=== PATIENT | female | born 1960 ===

== ENCOUNTER 2017-04-30 08:31 | Inpatient (IN) | payer BC ==
[2017-04-30] MEDS ORDERED: Midazolam 2 MG/2 ML VIAL ONE (09:26)
[2017-04-30] MEDS ORDERED: Propofol 10 mg/ml Inj (20 ML) ONE (09:26)
[2017-04-30] MEDS ORDERED: Rocuronium 10 mg/ml (5 ml) ONE ×3 (09:47→12:15)
[2017-04-30] MEDS ORDERED: Methylene Blue 10 mg/mL(10ml) IV ONE (09:50)
[2017-04-30] MEDS ORDERED: ceFAZolin IV 2 gm in Dextrose 2 GM/50 ML BAG IVPB ONE (09:51)
[2017-04-30] MEDS ORDERED: Vasopressin 20 Units/ml Inj ONE (09:51)
[2017-04-30] MEDS ORDERED: Bupivacaine HCl 0.5% PF (10 ml) Inj ONE ×2 (09:51)
[2017-04-30] MEDS ORDERED: Lactated Ringer's 1,000 ML IV ONE ×4 (09:57→17:00)
[2017-04-30] MEDS ORDERED: Neostigmine Methylsulfate 3mg/3ml Syringe IV ONE (12:30)
[2017-04-30] MEDS ORDERED: Clindamycin 2% Vaginal Cream(40 gm) ONE (12:51)
[2017-04-30] MEDS ORDERED: Morphine 4 MG/ML VIAL ONE (14:23)
[2017-04-30] MEDS ORDERED: HYDROmorphone 0.5 mg/0.5 ml ISec IVP PRN (14:39)
--- NOTE | 2017-04-30 14:47 | PCM.SURG1 ---
<Kandice Crawley - Last Filed: 04/30/17 14:44> Surgeon's Initial Post Op Note - Surgeon's Notes Surgeon: Dr. Castellanos Wood Box Maker: Kandice Wells PGY2 Type of Anesthesia: General Endo Pre-Operative Diagnosis: Fibroids Operative Findings: large fibroids Post-Operative Diagnosis: Same Operation Performed: Laparoscopic hysterectomy, cystoscopy, Anterior-posterior repair Specimen/Specimens Removed: uterus, fibroids Estimated Blood Loss: EBL {In ML}: 50 Blood Products Given: N/A Drains Used: No Drains Post-Op Condition: Good Date of Surgery/Procedure: 04/30/17 Time of Surgery/Procedure: 14:47 <Rika Castellanos - Last Filed: 05/01/17 18:40> Surgeon's Initial Post Op Note - Surgeon's Notes Pre-Operative Diagnosis: cystocele, RAYMOND, pelvic pain, fibroid uterus Operative Findings: enlarged uterus approximately 14 week sized with multiple fibroids, adhesions between omentum and anterior abdominal wall. Absent right fallopian tube. Adhesions between right ovary and uterus. Cystocele. Intact bladder with pattent bilateral ureteral jets Operation Performed: laparoscopic myomectomy, total laparoscopic hysterectomy, lysis of adhesions, anterior repair, cystoscopy Estimated Blood Loss: EBL {In ML}: 200
[2017-04-30] MEDS ORDERED: Lactated Ringer's 1,000 ML IV SCH (15:00)
[2017-04-30 18:04] VITALS: RESP 20
[2017-04-30] MEDS: ceFAZolin IV 2 gm in Dextrose 2 GM/50 ML BAG IVPB SCH (18:19)
[2017-04-30] MEDS: (Novolin R) Insulin Human Regular 100 units/ml vial SC SCH (21:55)
[2017-05-01] MEDS: ceFAZolin IV 2 gm in Dextrose 2 GM/50 ML BAG IVPB SCH ×2 (01:51→09:41)
[2017-05-01 06:45] LABS: BASO % 0.2 % (0.0-2.0); EOS # 0.1 K/uL (0.0-0.7); EOS % 0.9 % (0.0-4.0); HEMOGLOBIN 9.6 g/dL (11.0-16.0); LYMPH # 1.7 K/uL (1.0-4.3); LYMPH % 23.9 % (20.0-40.0); MEAN CELL VOLUME 80.8 fL (81.0-99.0); MEAN CORPUSCULAR HEMOGLOBIN 26.5 pg (27.0-31.0); MEAN CORPUSCULAR HGB CONC 32.8 g/dL (33.0-37.0); MEAN PLATELET VOLUME 8.6 fL (7.2-11.7); MONO # 0.6 K/uL (0.0-0.8); MONO % 8.5 % (0.0-10.0); NEUT # 4.8 K/uL (1.8-7.0); NEUT % 66.5 % (50.0-75.0); RBC 3.6 Mil/uL (3.80-5.20); RED CELL DISTRIBUTION WIDTH 15.4 % (11.5-14.5); WHITE BLOOD COUNT 7.3 K/uL (4.8-10.8)
[2017-05-01 07:15] LABS: ALBUMIN 2.9 g/dL (3.5-5.0); ALT/SGPT 17 U/L (9-52); AST/SGOT 13 U/L (14-36); BLOOD UREA NITROGEN 11 mg/dL (7-17); CALCIUM 8.2 mg/dl (8.6-10.4); GFR AFRICAN-AMERICAN > 60; GFR NON-AFRICAN AMERICAN > 60
[2017-05-01] MEDS: (Novolin R) Insulin Human Regular 100 units/ml vial SC SCH ×3 (07:47→16:59)
[2017-05-01] MEDS: Simethicone 80 mg Chewtab PO SCH ×2 (11:33→17:42)
--- NOTE | 2017-05-01 18:36 | CP.PCM.PN ---
Subjective - Date & Time of Evaluation Date of Evaluation: 05/01/17 Time of Evaluation: 18:00 - Subjective Subjective: Patient reports pain is poorly controlled. Otherwise patient has ambulated, voided, tolerated regular diet. Vitals are stable. Patient is to remain in house until AM for optimization of pain control. Objective - Vital Signs/Intake and Output Vital Signs (last 24 hours): Temp Pulse Resp BP Pulse Ox 99.9 F H 93 H 20 140/89 97 05/01/17 16:00 05/01/17 16:00 05/01/17 16:00 05/01/17 16:00 05/01/17 16:00 Intake and Output: 05/01/17 05/01/17 06:59 18:59 Intake Total 1100 Output Total 1000 Balance 100 - Medications Medications: Current Medications Acetaminophen (Tylenol 325mg Tab) 975 mg PO Q6 PRN PRN Reason: Fever >100.4 F Glipizide (Glucotrol) 10 mg PO ACB [facility] Last Admin: 05/01/17 07:55 Dose: 10 mg Heparin Sodium (Porcine) (Heparin) 5,000 units SC Q8 [facility] Last Admin: 05/01/17 14:34 Dose: 5,000 units Hydromorphone HCl (Dilaudid) 1 mg IVP Q4H PRN PRN Reason: Pain, severe (8-10) Last Admin: 05/01/17 17:00 Dose: 1 mg Lactated Ringer's (Lactated Ringer's) 1,000 mls @ 100 mls/hr IV .Q10H [facility] Insulin Human Regular (Novolin R) 0 unit SC ACHS [facility] PRN Reason: Protocol Last Admin: 05/01/17 16:59 Dose: Not Given Ketorolac Tromethamine (Toradol) 30 mg IVP Q6 PRN PRN Reason: Pain, moderate (4-7) Last Admin: 05/01/17 13:51 Dose: 30 mg Ketorolac Tromethamine (Toradol) 10 mg PO Q6 PRN PRN Reason: Pain, Mild (1-3) Losartan Potassium (Cozaar) 100 mg PO DAILY@2000 [place] Metformin HCl (Glucophage) 500 mg PO BID [facility] Last Admin: 05/01/17 17:41 Dose: 500 mg Ondansetron HCl (Zofran Inj) 4 mg IVP Q6 PRN PRN Reason: Nausea/Vomiting Pantoprazole Sodium (Protonix Inj) 40 mg IVP DAILY [facility] Last Admin: 05/01/17 11:44 Dose: Not Given Simethicone (Mylicon Chew Tab) 80 mg PO Q6 [facility] Last Admin: 05/01/17 17:42 Dose: 80 mg - Labs Labs: 05/01/17 06:33 05/01/17 06:33 - Constitutional Appears: Well, No Acute Distress (Patient appears unconfortable due to pain) - Eye Exam Eye Exam: Normal appearance - ENT Exam ENT Exam: Mucous Membranes Moist - Respiratory Exam Respiratory Exam: NORMAL BREATHING PATTERN - GI/Abdominal Exam GI & Abdominal Exam: Distended, Soft, Normal Bowel Sounds - Exam External exam: NORMAL EXTERNAL EXAM - Extremities Exam Extremities Exam: Normal Inspection - Neurological Exam Neurological Exam: Awake, Oriented x3 - Psychiatric Exam Psychiatric exam: Normal Affect, Normal Mood - Skin Skin Exam: Normal Color Assessment and Plan - Assessment and Plan (Free Text) Assessment: S/P Laparoscopic myomectomy, total laparoscopic hysterectomy, lysis of adhesions , anterior repair, cystoscopy POD #1 with poor pain control Plan: Patient may be discharged home tomorrow after pain control has been optimized
--- NOTE | 2017-05-01 18:44 | CP.PCM.DIS ---
Provider - Provider Date of Admission: 04/30/17 14:34 Attending physician: Rika Castellanos Time Spent in preparation of Discharge (in minutes): 15 Diagnosis - Discharge Diagnosis (1) Fibroid uterus Status: Acute (2) Pelvic pain Status: Acute (3) Cystocele Status: Acute (4) Urinary, incontinence, stress female Status: Acute Hospital Course - Lab Results Lab Results: Most Recent Lab Values WBC 7.3 K/uL (4.8-10.8) 05/01/17 06:33 RBC 3.60 Mil/uL (3.80-5.20) L 05/01/17 06:33 Hgb 9.6 g/dL (11.0-16.0) L 05/01/17 06:33 Hct 29.1 % (34.0-47.0) L 05/01/17 06:33 MCV 80.8 fL (81.0-99.0) L 05/01/17 06:33 MCH 26.5 pg (27.0-31.0) L 05/01/17 06:33 MCHC 32.8 g/dL (33.0-37.0) L 05/01/17 06:33 RDW 15.4 % (11.5-14.5) H 05/01/17 06:33 Plt Count 252 K/uL (130-400) 05/01/17 06:33 MPV 8.6 fL (7.2-11.7) 05/01/17 06:33 Neut % (Auto) 66.5 % (50.0-75.0) 05/01/17 06:33 Lymph % (Auto) 23.9 % (20.0-40.0) 05/01/17 06:33 Boyle % (Auto) 8.5 % (0.0-10.0) 05/01/17 06:33 Eos % (Auto) 0.9 % (0.0-4.0) 05/01/17 06:33 Baso % (Auto) 0.2 % (0.0-2.0) 05/01/17 06:33 Neut # 4.8 K/uL (1.8-7.0) 05/01/17 06:33 Lymph # 1.7 K/uL (1.0-4.3) 05/01/17 06:33 Boyle # 0.6 K/uL (0.0-0.8) 05/01/17 06:33 Eos # 0.1 K/uL (0.0-0.7) 05/01/17 06:33 Baso # 0.0 K/uL (0.0-0.2) 05/01/17 06:33 Sodium 134 mmol/L (132-148) 05/01/17 06:33 Potassium 3.6 mmol/L (3.6-5.2) 05/01/17 06:33 Chloride 105 mmol/L (98-107) 05/01/17 06:33 Carbon Dioxide 23 mmol/L (22-30) 05/01/17 06:33 Anion Gap 10 (10-20) 05/01/17 06:33 BUN 11 mg/dL (7-17) 05/01/17 06:33 Creatinine 0.6 mg/dL (0.7-1.2) L 05/01/17 06:33 Est GFR ( Amer) > 60 05/01/17 06:33 Est GFR (Non-Af Amer) > 60 05/01/17 06:33 POC Glucose (mg/dL) 93 mg/dL (65-110) 05/01/17 16:35 Random Glucose 120 mg/dL (65-105) H 05/01/17 06:33 Calcium 8.2 mg/dl (8.6-10.4) L 05/01/17 06:33 Total Bilirubin 0.4 mg/dL (0.2-1.3) 05/01/17 06:33 AST 13 U/L (14-36) L 05/01/17 06:33 ALT 17 U/L (9-52) 05/01/17 06:33 Alkaline Phosphatase 54 U/L (38-126) 05/01/17 06:33 Total Protein 6.0 g/dL (6.3-8.3) L 05/01/17 06:33 Albumin 2.9 g/dL (3.5-5.0) L 05/01/17 06:33 Globulin 3.1 gm/dL (2.2-3.9) 05/01/17 06:33 Albumin/Globulin Ratio 1.0 (1.0-2.1) 05/01/17 06:33 Blood Type O POSITIVE 04/30/17 09:51 Antibody Screen Negative 04/30/17 09:51 - Hospital Course Hospital Course: Patient underwent previously mentioned procedure and tolerated procedure well. Patient remained in hospital for an extra night in order to optimize pain control prior to discharge. She was then discharged home in stable condition after she has ambulated, voided, tolerated regular diet. Discharge Exam - Eye Exam Eye Exam: Normal appearance - Respiratory Exam Respiratory Exam: NORMAL BREATHING PATTERN - GI/Abdominal Exam GI & Abdominal Exam: Distended, Normal Bowel Sounds - Exam External exam: NORMAL EXTERNAL EXAM - Extremities Exam Extremities exam: normal inspection - Neurological Exam Neurological exam: Alert, Oriented x3 - Psychiatric Exam Psychiatric exam: Normal Affect, Normal Mood Discharge Plan - Follow Up Plan Condition: GOOD Disposition: DISCHARGED TO HOME CARE Instructions: Cystoscopy (DC), Anterior Vaginal Repair (DC), Myomectomy (DC), Laparoscopic Hysterectomy (DC), Posterior Vaginal Repair (DC)
[2017-05-02] MEDS: Simethicone 80 mg Chewtab PO SCH ×2 (00:02→06:04)
--- NOTE | 2017-05-02 06:55 | OP ---
PROCEDURE DATE: 04/30/2017 SURGEON: Rika Castellanos MD [employer] INSTALLER SURGEON: Dr. Dozier. TYPE OF ANESTHESIA: General endotracheal. PREOPERATIVE DIAGNOSES: Pelvic pain, fibroid uterus, cystocele, and stress urinary incontinence. POSTOPERATIVE DIAGNOSES: Pelvic pain, fibroid uterus, cystocele, and stress urinary incontinence. INTRAOPERATIVE FINDINGS: Enlarged uterus approximately 14 weeks' size with multiple large fibroids, adhesions between small bowel and anterior abdominal wall. SURGERY PERFORMED: Total laparoscopic hysterectomy, laparoscopic myomectomy, anterior repair, lysis of adhesions, cystoscopy, and Jennifer plication of the urethra. ESTIMATED BLOOD LOSS: 50 mL. There were no blood replaced. DRAINS: There were no drains used. POSTOPERATIVE CONDITION: Stable. DESCRIPTION OF PROCEDURE: After all relevant documentation was reviewed and signed by MD, patient was taken back to the OR room. She was prepped and draped in the usual sterile fashion and was placed in the lithotomy position. With a speculum, excellent visualization of the cervix was noted. The anterior lip of the cervix was then grabbed with a single-tooth tenaculum and the cervix was serially dilated. Once the uterine manipulator was introduced, attention was then placed to the abdominal cavity where an umbilical incision was made with the use of a scalpel, a 5-mm incision was made with the use of a scalpel, and then the obturator was introduced into the intraabdominal cavity under direct visualization. Upon confirmation that we were inside the intraabdominal cavity, left and right lower quadrant 5-mm ports were introduced under direct visualization. Attention was then placed to the left adnexa where with the use of a LigaSure, the fallopian tube and round ligament were transected and the right anterior leads of the broad ligament were then dissected down. The bladder flap was then created on the right side and the uterine arteries were cauterized and then ligated on the right. In a similar fashion, attention was then placed to the left adnexa where the fallopian tube was transected as well as the round ligament and the broad ligament was then dissected down. The anterior lip of the broad ligament was then dissected down to the level of the cervix. The bladder flap was also created on the right side. The uterine arteries were skeletonized and then cauterized and cut. We continued this process bilaterally until the uterus was completely amputated. The large right cornual fibroid was then removed and then the colpotomy was made with electrocautery. Once the uterus was completely amputated, the uterus was then delivered vaginally after it was bivalved intravaginally. This vaginal cuff was then sutured with the use of 0 Vicryl in a running locked stitch. Examination of the adnexa revealed excellent hemostasis. The pneumoperitoneum was then evacuated and the ports were then closed with the use of 4-0 Monocryl. Attention was then placed to the vaginal portion of the procedure where the anterior vaginal wall was transected down with the use of Allis clamps and a horizontal incision was then made with the use of a scalpel. The vaginal epithelium was then dissected off with cervical fascia and the bladder was gently moved away. Three plication stitches were then placed with the use of 1-0 Vicryl with excellent lift of the bladder and then the remaining vaginal epithelium was closed with the use of 2-0 plain. A 1-cm infraurethral incision was then made and the urethra was then mobilized and two Jennifer plication stitches were then placed in order to prevent stress urinary incontinence. The vaginal epithelium was then closed with the use of 2-0 Vicryl. Excellent hemostasis was noted. Cystoscopy was performed and the bladder was noted to be intact with bilateral ureteral jets visible. The cystoscope was then removed, vaginal packing was placed and a Rai catheter was then replaced. Excellent hemostasis was noted. The patient was then awoken from general anesthesia and taken back to the recovery room in stable condition. All instrument counts were correct x2. Rika Castellanos MD
[2017-05-02 07:44] VITALS: BP 146/80; PULSE 78; TEMP 99.2; O2SAT 98
[2017-05-02] MEDS: (Novolin R) Insulin Human Regular 100 units/ml vial SC SCH (09:59)
[2017-05-02] MEDS ORDERED: Influenza Vaccine 60 mcg/0.5 mL SYR (4YR UP) IM ONE (10:30)
== END 2017-05-02 11:30 | disposition home or self-care (01) | DRG 743 ==
LOC: C.SDS 08:31 → EDSTATUS 09:30 → C.9S 14:34 → C.4M 17:41
PROVIDERS: ADMIT Obstetrics & Gynecology; ATTEND Obstetrics & Gynecology
PROC: 0TJB8ZZ Inspection of Bladder, Via Natural or Artificial Opening Endoscopic (ICD-10-PCS; 2017-04-30)
PROC: 0UT9FZZ Resection of Uterus, Via Natural or Artificial Opening With Percutaneous Endoscopic Assistance (ICD-10-PCS; principal; 2017-04-30 09:30)
PROC: 0DNW4ZZ Release Peritoneum, Percutaneous Endoscopic Approach (ICD-10-PCS; 2017-04-30 09:30)
PROC: 0JQC3ZZ Repair Pelvic Region Subcutaneous Tissue and Fascia, Percutaneous Approach (ICD-10-PCS; 2017-04-30 09:30)
DX: D25.9 Leiomyoma of uterus, unspecified (principal); K66.0 Peritoneal adhesions (postprocedural) (postinfection); N39.3 Stress incontinence (female) (male); N81.10 Cystocele, unspecified